=== PATIENT | female | born 1960 | race Caucasian/White ===

== ENCOUNTER 2019-12-20 23:50 | Emergency (ER) | payer OTHER ==
[~2019-12-20] VITALS: Ht 149.9 cm; Wt 65.8 kg
[2019-12-21] MEDS ORDERED: HUMULIN N100 UNIT/2 ×2 (00:01→00:02)
[2019-12-21] MEDS ORDERED: NEURONTIN300 MG PO (00:02)
[2019-12-21] MEDS ORDERED: TAMS0.4C PO (08:20)
[2019-12-21] MEDS ORDERED: KETO10TA2 PO (08:20)
== END 2019-12-21 08:31 | disposition home or self-care (01) ==
LOC: ER 23:50
DX: N20.2 Calculus of kidney with calculus of ureter (principal); R10.32 Left lower quadrant pain